=== PATIENT | female | born 1995 | race Caucasian/White ===

== ENCOUNTER 2025-05-16 16:58 | Emergency (ER) | payer OTHER, SELFPAY ==
[2025-05-16 17:09] VITALS: BP 136/94; PULSE 90; RESP 16; TEMP 36.5; O2SAT 99
--- NOTE | 2025-05-16 17:12 | ED_ITS ---
HPI - Ear Problem General Chief complaint: Ear Stated complaint: L EARACHE Time Seen by Provider: 05/16/25 17:12 Source: patient Mode of arrival: ambulatory Limitations: no limitations History of Present Illness HPI Narrative: 30-year-old female presents with complaint of nasal congestion, sinus pressure for the past 2 weeks. Taking [id number] Mucinex Sinus and Neti pot. No relief of symptoms. Left ear pain for 2-3 days. Reports hearing is muffled. Afebrile. All systems reviewed and negative except as noted above. Related Data Home Medications ?Medication ?Instructions ?Recorded ?Confirmed ?Last Taken ?Type bupropion HCl 150 mg 24 hr tablet, mg PO 05/16/25 Unk nown History extended release buspirone 7.5 mg tablet mg 05/16/25 Unknown History venlafaxine 150 mg mg PO 05/16/25 Unknown Hist ory capsule,extended release 24 hr Allergies Allergy/AdvReac Type Severity Reaction Status Date / Time No Known Allergies Allergy Verified 05/16/25 17:10 PMFSH Comments At time of signature, agree with nursing past medical, surgical, social and family history. There is no relevant family history pertinent to the presenting complaint. Exam Narrative: GENERAL: This is a well-nourished, well-developed patient, in no apparent distress. HEAD: normocephalic, atraumatic. EYES: PERRL. Sclera clear/white. Vision is grossly intact. EARS: External ears normal, auditory canals clear and without drainage, left TM is erythematous, dull light reflex, mild bulging. No perforation bilaterally. Hearing grossly intact. NOSE: External nose normal with clear nasal drainage, erythema and swelling to bilateral nares. THROAT: Mucous membranes moist, clear postnasal drainage with no significant erythema or swelling. NECK: Neck supple, non-tender without lymphadenopathy, masses or thyromegaly. CARDIOVASCULAR: Regular rate and rhythm without murmurs, gallops, or rubs. RESPIRATORY: Clear to auscultation. Breath sounds equal bilaterally. No wheezes, rales, or rhonchi. SKIN: warm, Dry, intact with no suspicious lesions or rash, good texture and turgor. NEURO: awake, alert, and oriented to person, place and time. There were no obvious focal neurologic abnormalities. EXTREMITIES: No joint tenderness, effusion, or edema noted. Course Course Level of Care: Express Care Visit Vital Signs Vital signs: Vital Signs Temperature 36.5 C 05/16/25 17:09 Pulse Rate 90 05/16/25 17:09 Respiratory Rate 16 05/16/25 17:09 Blood Pressure 136/94 H 05/16/25 17:09 Pulse Oximetry 99 05/16/25 17:09 Temperature 36.5 C 05/16/25 17:09 Pulse Rate 90 05/16/25 17:09 Respiratory Rate 16 05/16/25 17:09 Blood Pressure 136/94 H 05/16/25 17:09 Pulse Oximetry 99 05/16/25 17:09 Reviewed Medical Decision Making MDM Narrative Medical decision making narrative: Will treat left otitis media with amoxicillin. Patient is well-appearing, nontoxic. Vital Signs Vital Signs: Vital Signs Temperature 36.5 C 05/16/25 17:09 Pulse Rate 90 05/16/25 17:09 Respiratory Rate 16 05/16/25 17:09 Blood Pressure 136/94 H 05/16/25 17:09 Pulse Oximetry 99 05/16/25 17:09 Temperature 36.5 C 05/16/25 17:09 Pulse Rate 90 05/16/25 17:09 Respiratory Rate 16 05/16/25 17:09 Blood Pressure 136/94 H 05/16/25 17:09 Pulse Oximetry 99 05/16/25 17:09 Discharge Plan Discharge Clinical Impression: Acute left otitis media Sinusitis, acute Qualifiers: Sinusitis location: other Recurrence: not specified as recurrent Qualified Code(s): J01.80 - Other acute sinusitis Patient Disposition: Home Condition: Stable Instructions: Antibiotic Form, Ear Infection (ED) Additional Instructions: Take medications as prescribed. Take ibuprofen or Tylenol every 6-8 hours as needed for pain. Drink at least 64 oz of water a day. See your primary care physician if symptoms are not improving. Patient Language: [place] Prescriptions: New amoxicillin 875 mg tablet 875 mg PO Q12H 10 Days Qty: 20 0RF fluticasone propionate [Flonase Allergy Relief] 50 mcg/actuation spray,suspension 1 spray intranasal BID Qty: 16 0RF Rx Instructions: administer into each nostril Claritin-D 12 Hour 5-120 mg tablet extended release 12 hr 1 tablet PO Q12H PRN (Reason: Sinus congestion) Qty: 20 0RF No Action venlafaxine 150 mg capsule,extended release 24hr PO buspirone 7.5 mg tablet bupropion HCl 150 mg tablet extended release 24 hr PO Follow-up/Referrals: PHYSICIAN,BRUSHER MACHINE [Primary Care Provider, Internal Medicine] Time of Disposition: 17:16
== END 2025-05-16 17:21 | disposition home or self-care (01) ==
PROVIDERS: Emergency Provider Nurse Practitioner Family
DX: H66.92 Otitis media, unspecified, left ear (principal); J01.80 Other acute sinusitis; F41.9 Anxiety disorder, unspecified; F32.A Depression, unspecified
CPT/HCPCS: 99203; G0463